=== PATIENT | male | born 1950 | race Caucasian/White ===

== ENCOUNTER 2017-02-27 10:23 | Day surgery (SDC) | payer MEDICARE ==
[~2017-02-27 10:23] MED LIST: ACETAMINOPHEN500 M3 PO; ATENOLOL50 MG PO; ATORVASTATIN CA10 MG PO; CRESTOR10 MG PO; FLUTICASONE 50M16 GM; LEADER IRON TAB65 MG PO; LEVOTHYROXIN0.075 M1 PO; LISINOPRIL/HCTZ1 TA3 PO; NADOLOL 20 MG T20 MG PO; NATURE'S BLEND1 TA4 PO; OMEPRAZOLE20 MG PO; SYNTHROID 0.1M0.1 MG PO; ZYRTEC 10MG TAB10 MG PO
--- NOTE | 2017-02-27 11:43 | Operative Note ---
Upper GI Endoscopy Procedure date: 02/27/17 Date of : 52 Procedure:Upper GI Endoscopy Esophagogastroduodenoscopy with cold biopsies Indications: Mr. Hylton is a 66-year-old gentleman with chronic heartburn/gastroesophageal reflux disease for which he takes omeprazole daily. He does get breakthrough heartburn symptoms. He does report some bloating but no belching, dysphagia or globus sensation. He does have moderate phlegm in his throat and occasional indigestion. He also reports some chronic obstipation/constipation and will have a bowel movement every 3-4 days. He does state that he had a colonoscopy with Dr. Serjio Jarrell in [place] in December 2015. Performing Provider: Byron Ortiz MD Referring Provider: Jarvis Medina M.D. Sedation: Fentanyl 100 mg IV/Versed 7 mg IV Procedure: Prior to the procedure, a history and physical exam was performed, and patients medications and allergies were reviewed. The risks and benefits of the procedure and the sedation options and risks were discussed with the patient. All questions were answered and informed consent was obtained. The patient was brought to the procedure room. Patient identification and proposed procedure were verified by the physician and the nurse. The patient was placed in a left lateral decubitus position and the scope was passed under direct vision. Throughout the procedure, the patient's blood pressure, pulse, and oxygen saturations were monitored continuously. The endoscope was introduced through the mouth, and advanced to the second part of duodenum. The upper GI endoscopy was accomplished without difficulty. The patient tolerated the procedure well. Findings: The scope was passed directly into the upper esophagus and advanced to the third portion of the duodenum. The post bulbar duodenum and duodenal bulb were normal with normal mucosa and conniventes. Biopsies were taken from the duodenum to rule out celiac disease. The scope was withdrawn through a normal duodenal bulb and pylorus into the stomach. There was linear erythema of the antrum and body of the stomach consistent with linear reactive gastritis. The remainder of the antrum, body and fundus of the stomach were grossly normal. Upon retroflexion there was no hiatal hernia. 2 biopsies were taken in the antrum and along the lesser curvature for histology. The scope was then withdrawn into the esophagus. There was no evidence of reflux esophagitis or Henderson's. There were very strong tertiary contractions with a larger mid esophageal diverticulum. These findings were consistent with moderate to marked esophageal dysmotility with nonerosive gastroesophageal reflux disease. Immediate complications: None EBL (ml): 0 Impression: 1. Moderate to marked esophageal dysmotility with mid esophageal diverticulum and nonerosive gastroesophageal reflux disease 2. Linear reactive gastritis Recommendations: I do feel that the patient has symptoms most typical of esophageal dysmotility. He does have moderate to marked bloating with obstipation. We will discuss additional dietary measures and treatment measures. at [id number]
[2017-02-27 17:23] VITALS: BP 99/68
== END 2017-02-27 12:50 | disposition home or self-care (01) ==
LOC: SDC 10:23
PROVIDERS: Internal Medicine Gastroenterology
PROC: 0DB78ZX Excision of Stomach, Pylorus, Via Natural or Artificial Opening Endoscopic, Diagnostic (ICD-10-PCS; 2017-02-27)
PROC: 0DB98ZX Excision of Duodenum, Via Natural or Artificial Opening Endoscopic, Diagnostic (ICD-10-PCS; principal; 2017-02-27 11:30)
DX: K21.9 Gastro-esophageal reflux disease without esophagitis (principal); K22.5 Diverticulum of esophagus, acquired; K29.60 Other gastritis without bleeding; K22.4 Dyskinesia of esophagus